=== PATIENT | male | born 1955 | race Caucasian/White ===

== ENCOUNTER → 2021-10-17 | Outpatient (CLI) | payer BC | LOC: SJCVCIMAG 08:38 | PROVIDERS: ATTEND Internal Medicine | DX: I34.0 Nonrheumatic mitral (valve) insufficiency (principal); I44.7 Left bundle-branch block, unspecified; R06.00 Dyspnea, unspecified; I10 Essential (primary) hypertension; F17.210 Nicotine dependence, cigarettes, uncomplicated; Z72.89 Other problems related to lifestyle; R94.31 Abnormal electrocardiogram [ECG] [EKG] ==

== ENCOUNTER → 2021-11-09 | Outpatient (CLI) | payer BC ==
[~2021-11-09] VITALS: Ht 180.3 cm; Wt 67.1 kg
[~2021-11-09] MED LIST: AFRIN15 M1 NASAL; AMITRIPTYLINE H50 M2 PO; CLOBETASOL PROP15 GM TOP; FLONASE 0.05%50 MCG NARES; LOSARTAN-HCTZ1 EAC3 PO; MELATONIN3 M1 PO; OMEPRAZOLE 20 M20 M1 PO; PROVENTIL HFA6.7 G1 INH; TALTZ SYRI80 MG/1 ML SUBLING; VITAMIN B-121000 MC2 PO
[2021-11-09 08:35] VITALS: BP 142/80
[2021-11-09 08:48] LABS: HEMATOCRIT 41.3 % (42.0-52.0); HEMOGLOBIN 14.5 gm/dL (14.0-18.0); MCH 36.6 pg (26.0-34.0); MCV 104.6 fL (80.0-100.0); RBC 3.95 mil/uL (4.50-6.00); WBC 4.1 thou/uL (4.0-11.0)
[2021-11-09 09:00] LABS: CREATININE 0.7 mg/dL (0.7-1.3); POTASSIUM 3.6 mmol/L (3.5-5.1)
--- NOTE | 2021-11-09 09:07 | EKG ---
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: [facility] : 1955 Requested By: Eloy Llanos Order Number: [id number] MD: Mingo Peña Measurements Intervals [place] Rate: 73 P: 47 SD: 155 QRS: -39 QRSD: 148 T: 155 QT: 416 QTc: 459 Interpretive Statements Sinus rhythm Probable left atrial enlargement Left bundle branch block No previous ECG available for comparison Electronically Signed On 11-09-2021 9:06:57 SHIELD INSTALLER by Mingo Peña [email or web address] <ELECTRONICALLY SIGNED> By: Mingo Peña MD, [facility] 11/09/21 [phone] Mingo Peña MD, FACC /EPI
--- NOTE | 2021-11-20 09:40 | CATHLAB ---
[facility] [place] [address] INVASIVE PROCEDURE REPORT Name: PATRICK FIGUEREDO Room #: REG TEE Irvin#: [id number] Admission: 11/09/21 Attend Phys: Eloy Llanos Discharge: Date of : 57 Report #: [id number] THIS REPORT FOR: cc: Kody Rodney MD, Jay A. MD Lammoglia, Francisco J. MD ~ APPROVED REPORT Study performed: 11/09/2021 09:54:29 Patient Details Patient Status: Out-Patient Room #: The patient is a 65 year-old male Event Personnel Eloy Llanos Military Technician, Re Coon RTR Monitor, Lupe English RTR ScrubDanilo Jessica RN .net programmer Performed Art Access - R femoral artery* Left Heart Cath w/or w/o Coronaries [id number] [facility] Hemostasis with Manual pressure 53213 Initial Mod Sed Same Phys/QHP [facility] [id number] 86478 Mod Sed Same Phys/QHP 426018, supervision conscious sedation Indication Positive stress test, Chest pain Procedure Narrative The Right Groin^ was infiltrated with 1% Lidocaine subcutaneous anesthesia. A PINNACLE 4FR Sheath #[id number] sheath was inserted into the RFA^. Coronary angiography was performed using coronary diagnostic catheters. The right coronary system was accessed and visualized with a JR4 catheter. The left coronary system was accessed and visualized with a JL4 catheter. The left ventricle was accessed and visualized with a ANGLED PIGTAIL catheter. Hemostasis was obtained with manual pressure following sheath removal without any complications. The patient tolerated the procedure well and there were no complications associated with the procedure. There was no hematoma. Intraoperative Conscious Sedation Sedation start time: 10:23 Case end Time: 10:56 [facility] [address] [place] [address] INVASIVE PROCEDURE REPORT Name: PATRICK FIGUEREDO Room #: REG Irvin#: [id number] Admission: 11/09/21 Attend Phys: Eloy Mills Discharge: Date of : 57 Report #: [id number] Versed 2 mg Fluoro Time: 6.10 minutes Dose: DAP 7930.20 cGycm2 1265 mGy Contrast Type and Amount: Omnipaque 60 ml Coronary Angiography The patient's coronary anatomy is right dominant. Diagnostic Cath Left Main Large-caliber vessel normal origin trifurcates into left anterior descending ramus intermedius and left circumflex. Is free of high-grade disease LAD Moderate caliber type III vessel which courses in the anterior interventricular sulcus giving rise to several diagonal branches and terminating in the posterior aspect of the inferoapical wall is a bifurcating vessel. The vessel tapers throughout its entire course. Diagonal 1 Small caliber vessel without significant high-grade lesion of the courses on the anterolateral wall Circumflex Large-caliber nondominant vessel which courses in the AV groove giving rise to a large first marginal branch. Then terminates a small posterior wall vessel. No high-grade lesions are noted throughout the course. OM1 Large-caliber bifurcating vessel coursing on the lateral aspect of the heart without significant high-grade lesions noted Right Coronary Small caliber dominant vessel with a inferior origin. It courses on the AV groove posterior to the crux of the heart gives rise of small posterior descending artery and small posterior wall circulation all of which is free of high-grade disease R PDA Small caliber vessel without significant lesions noted Ramus Small caliber vessel coursing along the anterolateral wall without high-grade lesions present Left Ventriculography Left Ventriculography was not performed. Hemodynamics The aortic pressure is 145/71 mmHg with a mean of 105 mmHg. The left ventricular pressure is 139/7 mmHg with a mean of mmHg. The left ventricular end diastolic pressure is 16 mmHg. Conclusion 1. Essentially normal coronary arteries 2. Normal hemodynamics [facility] [address] [place] [address] INVASIVE PROCEDURE REPORT Name: PATRICK FIGUEREDO Room #: REG [facility]#: [id number] Admission: 11/09/21 Attend Phys: Eloy Mills Discharge: Date of : 57 Report #: [id number] Recommendations Cardiac Risk Reduction Program Medical Therapy <ELECTRONICALLY SIGNED> By: Eloy Llanos MD 11/20/21 0940 9 9 Eloy Llanos MD /INF
== END | disposition home or self-care (01) ==
LOC: CATH 07:19
PROVIDERS: ATTEND Internal Medicine
DX: R94.39 Abnormal result of other cardiovascular function study (principal); R07.9 Chest pain, unspecified; R06.00 Dyspnea, unspecified; I10 Essential (primary) hypertension; K21.9 Gastro-esophageal reflux disease without esophagitis; F17.210 Nicotine dependence, cigarettes, uncomplicated; Z98.890 Other specified postprocedural states; Z79.899 Other long term (current) drug therapy

== ENCOUNTER → 2021-11-22 | Outpatient (CLI) | payer BC | LOC: RAD 14:09 | PROVIDERS: ATTEND Internal Medicine Pulmonary Disease | DX: R91.8 Other nonspecific abnormal finding of lung field (principal); R06.02 Shortness of breath ==